=== PATIENT | female | born 1935 | race Caucasian/White ===

== ENCOUNTER 2017-11-21 00:40 | Emergency (ER) | payer MEDICARE, BC ==
[2017-11-21] MEDS ORDERED: Mag-Al Plus 1200 MG/1200 MG/120 MG/30 ML UDCUP ONE (00:47)
[2017-11-21] MEDS ORDERED: Lidocaine Viscous Sol 2% 15 ml UD Cup ONE (00:47)
[2017-11-21] MEDS ORDERED: Ondansetron ODT 4 MG TAB ONE (00:47)
== END 2017-11-21 03:31 ==
LOC: MADERS 00:40
DX: K29.00 Acute gastritis without bleeding (principal); E78.5 Hyperlipidemia, unspecified; M81.0 Age-related osteoporosis without current pathological fracture; I10 Essential (primary) hypertension; G30.9 Alzheimer's disease, unspecified; F02.80 Dementia in other diseases classified elsewhere, unspecified severity, without behavioral disturbance, psychotic disturbance, mood disturbance, and anxiety; Z79.899 Other long term (current) drug therapy
CPT/HCPCS: 99284; Q0162

== ENCOUNTER 2018-01-06 16:22 | Emergency (ER) | payer MEDICARE, BC ==
[2018-01-06 17:01] LABS: #Basophils 0.1 thou/uL (0.0-0.2); #Eosinphils 0.1 thou/uL (0.0-0.7); #Lymphocytes 1.5 thou/uL (1.20-3.40); #Monocytes 0.6 thou/uL (0.11-0.59); #Neutrophils 5.7 thou/uL (1.40-6.50); %Basophils 0.8 % (0.0-1.0); %Eosinophils 1.6 % (0.0-10.0); %Monocytes 7.9 % (0.0-10.0); %Neutrophils 70.7 % (42.0-75.0); Hemoglobin 12.7 g/dL (12.0-16.0); Mean Corpuscular HGB CONC 31.7 g/dL (32.0-36.0); Mean Corpuscular Hemoglobin 30.3 pg (27.0-31.0); Mean Corpuscular Volume 95.6 fL (78.0-98.0); Mean Platelet Volume 11.4 fL (7.4-10.4); Platelet Count 153 thou/uL (130-400); RBC Distribution Width 12.4 % (11.5-14.5); White Blood Cell (WBC) Count 8.1 thou/uL (4.8-10.8)
[2018-01-06 17:02] LABS: Bilirubin Negative (Negative); Blood, Urine Negative (Negative); Clarity Hazy (Clear); Glucose, Urine (Dipstick) Negative (Negative); Leukocyte Small (Negative); Nitrite Positive (Negative); Protein, Urine (Dipstick) Negative (Neg-Trace); Specific Gravity, Urine 1.015 (1.005-1.030); Urobilinogen 0.2 mg/dL (0.2-1.0); pH, Urine 5.5 (5.0-9.0)
[2018-01-06 17:07] LABS: Bacteria/HPF 4+ HPF (None Seen); RBC/HPF 0-3 HPF (0-3); WBC/HPF 21-50 HPF (0-3)
[2018-01-06 17:12] LABS: ALT (SGPT) 13 U/L (8-55); AST (SGOT) 15 U/L (5-34); Alkaline Phosphatase 102 U/L (40-150); Anion Gap 13 mmol/L (10-20); BUN (Urea Nitrogen) 33 mg/dL (9.8-20.1); Bilirubin, Total 0.3 mg/dL (0.2-1.2); Calc. Creatinine Clearance 0 mL/min (70-130); Calcium 9.7 mg/dL (7.8-10.44); Carbon Dioxide 31 mmol/L (23-31); Chloride 105 mmol/L (98-107); Estimated GFR-MDRD 31; Globulin 2.8 g/dL (2.4-3.5); Glucose 91 mg/dL (83-110); Potassium 5.1 mmol/L (3.5-5.1); Protein, Total 6.8 g/dL (6.0-8.3); Sodium 144 mmol/L (136-145)
[2018-01-06] MEDS ORDERED: cefTRIAXone\\ROCEPHIN 1 GM VIAL ONE (17:52)
--- NOTE | 2018-01-06 18:28 | RAD ---
PORTABLE CHEST: 01/06/18 HISTORY: Chest pain. COMPARISON: 01/07/16 exam. Patient is rotated on this exam. The heart size is enlarged. There are atherosclerotic changes of the aorta. Some persistent increased density in the right base. I am not certain whether this is related to the hemidiaphragm. There is h iatal hernia noted. IMPRESSION: 1. Cardiomegaly. 2. Stable overall appearance to the chest. Hiatal hernia is noted and some increased density in the right base which may just be related to an eventration of the right hemidiaphragm. POS: [facility]
== END 2018-01-06 21:16 ==
LOC: MADERS 16:22
DX: N39.0 Urinary tract infection, site not specified (principal); G89.29 Other chronic pain; M25.552 Pain in left hip; M25.551 Pain in right hip; M81.0 Age-related osteoporosis without current pathological fracture; K21.9 Gastro-esophageal reflux disease without esophagitis; D50.9 Iron deficiency anemia, unspecified; E78.5 Hyperlipidemia, unspecified; J45.909 Unspecified asthma, uncomplicated; F41.9 Anxiety disorder, unspecified; F32.9 Major depressive disorder, single episode, unspecified; Z79.899 Other long term (current) drug therapy
CPT/HCPCS: 51701; 71045; 80053; 81003; 81015; 85025; 87077; 87086; 87186; 93005; 94760; 96365; A4353; J0696

== ENCOUNTER 2020-05-20 20:57 | Emergency (ER) | payer MEDICARE, BC, OTHER ==
[2020-05-20] MEDS ORDERED: traMADol HCl 50 MG TAB ONE (21:23)
[2020-05-20] MEDS ORDERED: cefTRIAXone\\ROCEPHIN 1 GM VIAL ONE (22:21)
[2020-05-20 22:38] LABS: Bilirubin Negative (Negative); Blood, Urine Negative (Negative); Clarity Cloudy (Clear); Glucose, Urine (Dipstick) Negative (Negative); Ketone, Urine Negative (Negative); Leukocyte Moderate (Negative); Nitrite Positive (Negative); Protein, Urine (Dipstick) Negative (Neg-Trace); RBC/HPF None Seen HPF (0-3); Urobilinogen 0.2 mg/dL (Less than 2)
[2020-05-20 22:39] LABS: Bacteria/HPF 4+ HPF (None Seen)
== END 2020-05-20 23:38 ==
LOC: MADERS 20:57
DX: M17.11 Unilateral primary osteoarthritis, right knee (principal); M19.071 Primary osteoarthritis, right ankle and foot; E86.0 Dehydration; N39.0 Urinary tract infection, site not specified; R26.9 Unspecified abnormalities of gait and mobility; M81.0 Age-related osteoporosis without current pathological fracture; K21.9 Gastro-esophageal reflux disease without esophagitis; D50.9 Iron deficiency anemia, unspecified; E78.5 Hyperlipidemia, unspecified; J45.909 Unspecified asthma, uncomplicated; I10 Essential (primary) hypertension; E78.00 Pure hypercholesterolemia, unspecified; G30.9 Alzheimer's disease, unspecified
CPT/HCPCS: 51701; 81001; 87077; 87086; 87186; 94760; 96365; J0696

== ENCOUNTER 2020-12-19 01:09 | Emergency (ER) | payer MEDICARE, BC | END 2020-12-19 02:35 | LOC: MADERS 01:09 | DX: M25.552 Pain in left hip (principal); R26.9 Unspecified abnormalities of gait and mobility; M19.90 Unspecified osteoarthritis, unspecified site; K21.9 Gastro-esophageal reflux disease without esophagitis; D50.9 Iron deficiency anemia, unspecified; E78.5 Hyperlipidemia, unspecified; E78.6 Lipoprotein deficiency; E87.6 Hypokalemia; J45.909 Unspecified asthma, uncomplicated; E78.00 Pure hypercholesterolemia, unspecified; M81.0 Age-related osteoporosis without current pathological fracture; E66.9 Obesity, unspecified; I12.9 Hypertensive chronic kidney disease with stage 1 through stage 4 chronic kidney disease, or unspecified chronic kidney disease; N18.9 Chronic kidney disease, unspecified; Z87.19 Personal history of other diseases of the digestive system; Z79.899 Other long term (current) drug therapy; W19.XXXA Unspecified fall, initial encounter ==

== ENCOUNTER 2020-12-25 14:49 | Emergency (ER) | payer MEDICARE, BC ==
[2020-12-25 15:57] LABS: #Lymphocytes 1.8 thou/uL (1.20-3.40); #Monocytes 0.5 thou/uL (0.11-0.59); #Neutrophils 5.6 thou/uL (1.40-6.50); %Basophils 0.6 % (0.0-1.0); %Eosinophils 0.5 % (0.0-10.0); %Lymphocytes 22.8 % (21.0-51.0); %Monocytes 6.8 % (0.0-10.0); %Neutrophils 69.4 % (42.0-75.0); Hemoglobin 14.9 g/dL (12.0-16.0); Mean Corpuscular HGB CONC 30.1 g/dL (32.0-36.0); Mean Corpuscular Hemoglobin 27.9 pg (27.0-31.0); Mean Corpuscular Volume 92.9 fL (78.0-98.0); Mean Platelet Volume 9.1 fL (7.4-10.4); Platelet Count 202 thou/uL (130-400); RBC Distribution Width 13.5 % (11.5-14.5); Red Blood Cell (RBC) Count 5.32 mill/uL (4.20-5.40)
[2020-12-25 16:17] LABS: ALT (SGPT) 19 U/L (8-55); AST (SGOT) 22 U/L (5-34); Albumin 3.7 g/dL (3.4-4.8); Alkaline Phosphatase 114 U/L (40-110); Anion Gap 17 mmol/L (10-20); BUN (Urea Nitrogen) 14 mg/dL (9.8-20.1); Bilirubin, Total 0.5 mg/dL (0.2-1.2); Calc. Creatinine Clearance 0 mL/min (70-130); Calcium 9.6 mg/dL (7.8-10.44); Carbon Dioxide 24 mmol/L (23-31); Chloride 104 mmol/L (98-107); Globulin 2.8 g/dL (2.4-3.5); Glucose 119 mg/dL (83-110); Potassium 4.4 mmol/L (3.5-5.1); Protein, Total 6.5 g/dL (5.8-8.1); Sodium 141 mmol/L (136-145)
[2020-12-25 16:35] LABS: CKMB 5.1 ng/mL (0-6.6)
[2020-12-25 16:38] LABS: Bilirubin Negative (Negative); Blood, Urine Negative (Negative); Clarity Cloudy (Clear); Glucose, Urine (Dipstick) Negative (Negative); Ketone, Urine Negative (Negative); Leukocyte Trace (Negative); Nitrite Negative (Negative); Protein, Urine (Dipstick) 100 mg/dL (Neg-Trace); Urobilinogen 0.2 mg/dL (Less than 2); pH, Urine 5.5 (5.0-9.0)
[2020-12-25 16:47] LABS: Bacteria/HPF 4+ HPF (None Seen); RBC/HPF 0-3 HPF (0-3); Squamous Epithelial 21-50 HPF (0-3)
[2020-12-25 19:21] LABS: Troponin I 0.035 ng/mL (< 0.028)
== END 2020-12-25 22:29 | disposition home or self-care (01) ==
LOC: MADERS 14:49
DX: M62.838 Other muscle spasm (principal); E86.0 Dehydration; I12.9 Hypertensive chronic kidney disease with stage 1 through stage 4 chronic kidney disease, or unspecified chronic kidney disease; E78.5 Hyperlipidemia, unspecified; K21.9 Gastro-esophageal reflux disease without esophagitis; N18.9 Chronic kidney disease, unspecified; G30.9 Alzheimer's disease, unspecified; F02.80 Dementia in other diseases classified elsewhere, unspecified severity, without behavioral disturbance, psychotic disturbance, mood disturbance, and anxiety; E66.9 Obesity, unspecified; J45.909 Unspecified asthma, uncomplicated; M81.0 Age-related osteoporosis without current pathological fracture
CPT/HCPCS: 36415; 71045; 80053; 81003; 81015; 82553; 83735; 84484; 85025; 93005

== ENCOUNTER 2021-02-04 23:33 | Emergency (ER) | payer MEDICARE, BC ==
[2021-02-05 03:07] LABS: #Basophils 0.1 thou/uL (0.0-0.2); #Lymphocytes 1.3 thou/uL (1.20-3.40); #Monocytes 0.7 thou/uL (0.11-0.59); #Neutrophils 6.5 thou/uL (1.40-6.50); %Basophils 0.7 % (0.0-1.0); %Eosinophils 0.5 % (0.0-10.0); %Lymphocytes 14.9 % (21.0-51.0); %Monocytes 8.2 % (0.0-10.0); %Neutrophils 75.7 % (42.0-75.0); Mean Corpuscular HGB CONC 30.5 g/dL (32.0-36.0); Mean Corpuscular Hemoglobin 28.3 pg (27.0-31.0); Mean Corpuscular Volume 92.7 fL (78.0-98.0); Mean Platelet Volume 10.1 fL (7.4-10.4); Platelet Count 194 thou/uL (130-400); RBC Distribution Width 14.7 % (11.5-14.5); Red Blood Cell (RBC) Count 5.29 mill/uL (4.20-5.40); White Blood Cell (WBC) Count 8.6 thou/uL (4.8-10.8)
[2021-02-05 03:30] LABS: ALT (SGPT) 14 U/L (8-55); AST (SGOT) 25 U/L (5-34); Albumin 3.6 g/dL (3.4-4.8); Alkaline Phosphatase 99 U/L (40-110); Anion Gap 13 mmol/L (10-20); BUN (Urea Nitrogen) 14 mg/dL (9.8-20.1); Bilirubin, Total 0.4 mg/dL (0.2-1.2); Calc. Creatinine Clearance 0 mL/min (70-130); Calcium 9.9 mg/dL (7.8-10.44); Carbon Dioxide 30 mmol/L (23-31); Chloride 105 mmol/L (98-107); Globulin 2.7 g/dL (2.4-3.5); Glucose 113 mg/dL (83-110); Potassium 4.7 mmol/L (3.5-5.1); Protein, Total 6.3 g/dL (5.8-8.1); Sodium 143 mmol/L (136-145)
[2021-02-05 04:27] LABS: Bilirubin Negative (Negative); Blood, Urine Negative (Negative); Glucose, Urine (Dipstick) Negative (Negative); Ketone, Urine Trace mg/dL (Negative); Leukocyte Small (Negative); Nitrite Positive (Negative); Protein, Urine (Dipstick) 30 mg/dL (Neg-Trace); Urobilinogen 0.2 mg/dL (Less than 2); pH, Urine 5.5 (5.0-9.0)
[2021-02-05 04:28] LABS: Clarity Hazy (Clear)
[2021-02-05 04:29] LABS: Specific Gravity, Urine 1.027 (1.002-1.036)
[2021-02-05 04:35] LABS: RBC/HPF 0-3 HPF (0-3); WBC/HPF Greater Than 50 HPF (0-3)
[2021-02-05 04:36] LABS: Bacteria/HPF 4+ HPF (None Seen); Calcium Oxalate Crystals Rare HPF (None Seen); Mucous/LPF 1+ LPF (<2+); Transitional Epithelial 0-3 HPF (None Seen); Yeast-Budding Rare HPF (None Seen)
[2021-02-05] MEDS ORDERED: Sulfameth/Trimethoprim DS 800-160mg TAB ONE (05:38)
[2021-02-05] MEDS ORDERED: Ciprofloxacin 500 MG TAB ONE (08:07)
== END 2021-02-05 11:16 ==
LOC: MADERS 23:33
DX: N39.0 Urinary tract infection, site not specified (principal); W19.XXXA Unspecified fall, initial encounter; E78.5 Hyperlipidemia, unspecified; I12.9 Hypertensive chronic kidney disease with stage 1 through stage 4 chronic kidney disease, or unspecified chronic kidney disease; N18.9 Chronic kidney disease, unspecified; E78.00 Pure hypercholesterolemia, unspecified; K21.9 Gastro-esophageal reflux disease without esophagitis; D63.1 Anemia in chronic kidney disease; M19.90 Unspecified osteoarthritis, unspecified site; J45.909 Unspecified asthma, uncomplicated; E66.9 Obesity, unspecified; Z79.899 Other long term (current) drug therapy
CPT/HCPCS: 51701; 70450; 71045; 72125; 72170; 80053; 81003; 81015; 85025; 87077; 87086; 87186

== ENCOUNTER 2021-02-20 19:49 | Emergency (ER) | payer MEDICARE, BC ==
[2021-02-20] MEDS ORDERED: Norepinephrine 4 MG/4 ML VIAL IVPB ONE (19:50)
[2021-02-20] MEDS ORDERED: EPINEPHrine 1 MG/10 ML Abboject SYRINGE IVP ONE (19:50)
[2021-02-20] MEDS ORDERED: Rocuronium Bromide 10 MG/ML (10ML VIAL) IVPB ONE (19:50)
[2021-02-20 21:15] LABS: #Basophils 0.1 thou/uL (0.0-0.2); #Lymphocytes 0.6 thou/uL (1.20-3.40); #Monocytes 0.9 thou/uL (0.11-0.59); #Neutrophils 17.1 thou/uL (1.40-6.50); %Basophils 0.3 % (0.0-1.0); %Lymphocytes 3.1 % (21.0-51.0); %Monocytes 4.9 % (0.0-10.0); %Neutrophils 91.7 % (42.0-75.0); Hemoglobin 14.7 g/dL (12.0-16.0); Mean Corpuscular HGB CONC 29.3 g/dL (32.0-36.0); Mean Corpuscular Hemoglobin 28.2 pg (27.0-31.0); Mean Corpuscular Volume 96.4 fL (78.0-98.0); Mean Platelet Volume 10.2 fL (7.4-10.4); Platelet Count 213 thou/uL (130-400); Red Blood Cell (RBC) Count 5.21 mill/uL (4.20-5.40); White Blood Cell (WBC) Count 18.7 thou/uL (4.8-10.8)
[2021-02-20 21:28] LABS: ALT (SGPT) 20 U/L (8-55); AST (SGOT) 17 U/L (5-34); Albumin 3.4 g/dL (3.4-4.8); Alkaline Phosphatase 128 U/L (40-110); Anion Gap 13 mmol/L (10-20); BUN (Urea Nitrogen) 39 mg/dL (9.8-20.1); Bilirubin, Total 0.4 mg/dL (0.2-1.2); Calc. Creatinine Clearance 0 mL/min (70-130); Calcium 10.2 mg/dL (7.8-10.44); Carbon Dioxide 30 mmol/L (23-31); Chloride 110 mmol/L (98-107); Glucose 103 mg/dL (83-110); Lipase 20 U/L (8-78); Magnesium 2.1 mg/dL (1.6-2.6); Potassium 5.7 mmol/L (3.5-5.1); Protein, Total 6.4 g/dL (5.8-8.1); Sodium 147 mmol/L (136-145)
[2021-02-20 21:29] LABS: Base Excess-Venous 0.5 mmol/L (-2.0 to 3.0); Bicarbonate (HCO3v) 31.6 mmol/L (22.0-28.0); CO2 Tension (PvCO2) 79.7 mmHg (42.0-51.0); Calcium, Ionized 1.31 mmol/L (1.15-1.33); Chloride 114 mmol/L (98-107); Hemoglobin - Calc 17.1 g/dL (12.0-16.0); Potassium 5.7 mmol/L (3.5-5.1); Sodium 153 mmol/L (138-145); T. Carbon Dioxide 34.1 mmol/L (22.0-28.0); vO2 Saturation-calc 87.8 % (60.0-85.0)
[2021-02-20] MEDS ORDERED: Sodium Chloride 0.9% 250 ML 250 ML ONE (21:30)
[2021-02-20 21:40] LABS: Bilirubin Negative (Negative); Blood, Urine Negative (Negative); Glucose, Urine (Dipstick) Negative (Negative); Ketone, Urine Negative (Negative); Leukocyte Small (Negative); Nitrite Negative (Negative); Protein, Urine (Dipstick) 30 mg/dL (Neg-Trace); Urobilinogen 0.2 mg/dL (Less than 2)
[2021-02-20 21:41] LABS: Clarity Turbid (Clear)
[2021-02-20 21:45] LABS: Bacteria/HPF 4+ HPF (None Seen); WBC/HPF 21-50 HPF (0-3)
[2021-02-20 21:54] LABS: CKMB 8.4 ng/mL (0-6.6)
[2021-02-20] MEDS ORDERED: Furosemide 20 MG/2 ML VIAL ONE (22:10)
[2021-02-20 22:20] LABS: SARS-CoV-2 NAA Rapid Test DETECTED (NotDetected)
[2021-02-20] MEDS ORDERED: Norepinephrine 4 MG/4 ML VIAL ONE (22:45)
== END 2021-02-20 23:34 | disposition short-term general hospital (02) ==
LOC: MADERS 19:49
DX: U07.1 COVID-19 (principal); A41.89 Other specified sepsis; N17.9 Acute kidney failure, unspecified; J12.82 Pneumonia due to coronavirus disease 2019; R77.8 Other specified abnormalities of plasma proteins; D72.829 Elevated white blood cell count, unspecified; R00.0 Tachycardia, unspecified; I12.9 Hypertensive chronic kidney disease with stage 1 through stage 4 chronic kidney disease, or unspecified chronic kidney disease; N18.9 Chronic kidney disease, unspecified; D50.9 Iron deficiency anemia, unspecified; E78.5 Hyperlipidemia, unspecified; K21.9 Gastro-esophageal reflux disease without esophagitis; E78.00 Pure hypercholesterolemia, unspecified; M19.90 Unspecified osteoarthritis, unspecified site; M81.0 Age-related osteoporosis without current pathological fracture; J45.909 Unspecified asthma, uncomplicated; G30.9 Alzheimer's disease, unspecified; F02.80 Dementia in other diseases classified elsewhere, unspecified severity, without behavioral disturbance, psychotic disturbance, mood disturbance, and anxiety; E66.9 Obesity, unspecified; Z68.45 Body mass index [BMI] 70 or greater, adult; Z87.19 Personal history of other diseases of the digestive system; Z79.899 Other long term (current) drug therapy
CPT/HCPCS: 0240U; 71045; 80053; 82330; 82435; 82553; 82803; 83605; 83690; 83735; 83880; 84132; 84295; 84484; 85014; 85025; 87040; 87086; 87149 ×2; 93005; 31500; 51702; 81003; 81015; 96365; 96374; 96375; 99292; J0171; J1940; J1956; J3370; J7050; J7070; J7620